=== PATIENT | male | born 1980 | race African-American/Black ===

== ENCOUNTER 2020-04-07 15:03 | Outpatient (CLI) | payer OTHER ==
--- NOTE | 2020-04-07 15:23 | RAD ---
XR Knee Rt 2 View HISTORY: Disability exam, right knee pain FINDINGS: No fracture or dislocation is identified. No bony destruction, joint effusion or significant osteophy tosis is seen.
--- NOTE | 2020-04-07 15:26 | RAD ---
XR Lumbar Spine 2 Or 3 View HISTORY: Disability exam, low back pain COMPARISON: None. FINDINGS: No fracture, subluxation, bony destruction is seen. No significant degenerative changes are seen.
== END 2020-04-07 15:04 | disposition home or self-care (01) ==
LOC: BICRAD 15:03
PROVIDERS: ATTEND Internal Medicine
DX: Z02.71 Encounter for disability determination (principal)
CPT/HCPCS: 72100

== ENCOUNTER 2022-08-23 17:18 | Emergency (ER) | payer OTHER, SELFPAY ==
[~2022-08-23 17:18] MED LIST: Iopamidol-370 76% 500 ML MDV (1 ML CHARGE) ONE
[2022-08-23] MEDS ORDERED: Ketorolac Tromethamine 30 MG/ML VIAL ONE (17:51)
== END 2022-08-23 18:56 | disposition home or self-care (01) ==
LOC: ERS 17:18
DX: S16.1XXA Strain of muscle, fascia and tendon at neck level, initial encounter (principal); S80.01XA Contusion of right knee, initial encounter; S40.011A Contusion of right shoulder, initial encounter; V89.2XXA Person injured in unspecified motor-vehicle accident, traffic, initial encounter
CPT/HCPCS: 71260; 72125; 74177; 96374; J1885